=== PATIENT | female | born 1960 | race Caucasian/White ===

== ENCOUNTER 2016-06-03 08:10 | Day surgery (SDC) | payer MEDICAID ==
[~2016-06-03 08:10] MED LIST: PROPOFOL INJ 200 MG/20 ML VIAL IV ONE
[2016-06-03 09:47] VITALS: BP 125/78
--- NOTE | 2016-06-03 13:00 | Operative Report ---
Operative Report DATE OF SURGERY: 06/03/16 Operative Report: The risks, benefits and alternatives of the procedure including risks of bleeding, perforation requiring surgery are explained to the patient detail and informed consent is obtained. Patient is taken to the endoscopy suite and placed in a left, lateral decubital position. Propofol medication is administered. Timeout is called. A rectal examination was done which did not reveal any masses, tears or fissures. An Olympus video scope was inserted into the patient's rectum. The scope was then gradually advanced all the way to the cecum. The cecum was identified by the usual anatomical landmarks including the ileocecal valve as well as the appendiceal office. Photodocumentation was obtained. Prep is good. The scope was then sequentially pulled back via the rest segments of the colon including the ascending colon, back flexure, transverse colon, splenic flexure, descending colon and finally into the rectosigmoid portions of the colon. Retroflexion maneuvers performed. The risks benefits and alternatives of the procedure explained to the patient in detail and informed consent is obtained that GIF Olympus video scope was inserted into the patient's mouth and hypopharynx the esophagus is identified intubated and insufflated the scope was then advanced through the esophagus stomach and duodenum retroflexion maneuver is done the esophagus stomach and first and second portions of the duodenum examined PREOPERATIVE DIAGNOSIS: Personal history of colon polyp. Change of bowel habits. Dysphagia POSTOPERATIVE DIAGNOSIS: Schatzki's ring which is broken via biopsy forceps. Hiatal hernia. Gastritis, mucosal specimens obtained rule out Helicobacter pylori. Mild right colon mucosal inflammation status post biopsy. Diverticulosis. Internal hemorrhoids OPERATION: Colonoscopy with biopsy. EGD with biopsy SURGEON: PAL WARNER ANESTHESIA: LMAC TISSUE REMOVED OR ALTERED: As noted above. COMPLICATIONS: None. ESTIMATED BLOOD LOSS: none INTRAOPERATIVE FINDINGS: Dysphagia likely explained by her Schatzki's ring. Rule out lymphocytic, microscopic, collagenous colitis. No evidence of diverticulitis. PROCEDURE: Patient tolerated the procedure well. No immediate postprocedure complications are noted. Patient is discharged in good condition. Discharge date 06/03/16 Discharge activity: Regular. Discharge diet: Regular. 2-3 week follow-up to discuss findings. We'll await on pathology. 10 year screening. Patient is instructed to call the office or proceed to the emergency room should there be any further polyps or questions.
== END 2016-06-03 09:45 | disposition home or self-care (01) ==
LOC: END 08:10
PROVIDERS: ATTEND Internal Medicine Gastroenterology
PROC: 0DB68ZX Excision of Stomach, Via Natural or Artificial Opening Endoscopic, Diagnostic (ICD-10-PCS; principal; 2016-06-03 09:30)
PROC: 0DBF8ZX Excision of Right Large Intestine, Via Natural or Artificial Opening Endoscopic, Diagnostic (ICD-10-PCS; 2016-06-03 09:30)
DX: K22.2 Esophageal obstruction (principal); K44.9 Diaphragmatic hernia without obstruction or gangrene; K52.9 Noninfective gastroenteritis and colitis, unspecified; K57.30 Diverticulosis of large intestine without perforation or abscess without bleeding; K64.8 Other hemorrhoids; M06.9 Rheumatoid arthritis, unspecified; I25.10 Atherosclerotic heart disease of native coronary artery without angina pectoris; F17.210 Nicotine dependence, cigarettes, uncomplicated; I10 Essential (primary) hypertension; L40.9 Psoriasis, unspecified; M25.50 Pain in unspecified joint; R73.03 Prediabetes
CPT/HCPCS: 43239; 45380; 82962; 88342 ×2; 88305 ×2; J2704; 740

== ENCOUNTER → 2016-07-30 | Day surgery (SDC) | payer MEDICAID ==
[~2016-07-30] MED LIST changes: +LIDOCAINE 2% JELLY 5 ML TUBE ONE; -PROPOFOL INJ 200 MG/20 ML VIAL IV ONE
== END ==
LOC: END 07:45
PROVIDERS: ATTEND Surgery
PROC: 4A0B7BZ Measurement of Gastrointestinal Pressure, Via Natural or Artificial Opening (ICD-10-PCS; principal; 2016-07-30)
PROC: 4A0B78Z Measurement of Gastrointestinal Motility, Via Natural or Artificial Opening (ICD-10-PCS; 2016-07-30)
DX: K21.9 Gastro-esophageal reflux disease without esophagitis (principal); R13.10 Dysphagia, unspecified
CPT/HCPCS: 91010; 91034; J3490